=== PATIENT | female | born 1935 | race Caucasian/White ===

== ENCOUNTER 2016-05-09 14:11 | Inpatient (IN) | payer OTHER ==
[2016-05-09] MEDS ORDERED: NS 1,000 ML IV ONE (14:27)
--- NOTE | 2016-05-09 14:30 | EDPHY ---
HPI/HX/ROS/PE/MDM Narrative: CHIEF COMPLAINT: Sore throat, throat swelling HPI: The patient is a 81 y/o female who is visiting from the [facility] complaining of sore throat onset yesterday and right-sided throat swelling onset this morning upon waking. She denies significant past medical history, though later reports previous episode of necrotizing fascitis and recurrent pneumonia. She has barely been able to swallow a small amount of water this morning and reports associated difficulty and pain with talking. Throughout last night she also had intermittent chills. Her PCP called in erythromycin for her and she has taken one pill so far with great difficulty. She denies recent trauma or other illness. REVIEW OF SYSTEMS: Aside from elements discussed in the HPI, a comprehensive 10-point review of systems was reviewed and is negative. PMH: Necrotizing fascitis and recurrent pneumonia. Takes simvastatin, metoprolol SOCIAL HISTORY: son at bedside PHYSICAL EXAM: General:Patient is alert, in no acute distress. ENT:Eyes are normal to inspection. No tongue elevation. No drooling. Despite tongue depressor cannot visualize uvula or tonsils. No stridor. Speaking in full sentences. Mild external swelling below chin on the right side. Neck: Normal inspection. Full range of motion. Respiratory:No respiratory distress. Breath sounds normal bilaterally. Cardiovascular: Tachycardic regular rate and rhythm. Strong peripheral pulses. Normal cap refill. Abdomen:The abdomen is nontender to palpation. There are no peritoneal signs. There are normal bowel sounds. Back: Normal to inspection. No tenderness to palpation. Skin: Normal color. No rash. Warm and dry. Extremities: Normal appearance. Full range of motion. Neuro: Oriented x3. Normal motor function. Normal sensory function. ED Course: IV established. Labs drawn including CBC, CHEM. ISTAT ordered. Plan for CT of neck soft tissue. 1L IV NS administered. 1550: Study: CT of the neck soft tissue Indication: Pain, swelling Results: CT scan of the neck was obtained. The results of the study are 1. Right neck inflammation extending from the tonsil to the carotid bifurcation , with mucosal thickening, suggesting phlegmon with no visible abscess. Imaging follow up is recommended as clinically warranted. 2. 2.6-cm right maxillary sinus mucous retention cyst/polyp. 3. 3.5-cm left thyroid nodule. This is above the threshold for biopsy per [employer] of [employer] in Ultrasound. If this has not been previously assessed , consider starting with a thyroid ultrasound. 4. Degenerative change in the cervical spine. 5. Additional findings as above. The study was read by the radiologist, Dr. Rhodes. I viewed the images myself on the PACS system. ENT paged. 1553: Consulted with Dr. Vargas, ENT. She will review imaging and agrees with my plan for antibiotics and admission. 10mg IV Decadron and 3gm IV Unasyn administered. Discussed plan with the patient. She agrees to admission. 1617: Spoke with Dr. Hart, hospitalist. He accepts admission. MDM: This patient presents with severe throat pain and likely phlegmon is seen on CT. No drainable abscess. Given aggressive nature of infection, will need to admit for IV antibiotics, airway monitoring and ENT evaluation. - Data Points Laboratory Results: Laboratory Results 05/09/16 14:30 05/09/16 14:30 05/09/16 05/09/16 05/09/16 14:32 14:30 14:30 WBC 23.16 10^3/uL H 10^3/uL (3.80-9.50) RBC 4.48 10^6/uL 10^6/uL (4.18-5.33) Hgb 14.0 g/dL g/dL (12.6-16.3) POC Hgb 14.6 gm/dL gm/dL (12.3-15.9) Hct 41.8 % % (38.0-47.0) POC Hct 43 % % (35.5-47.5) MCV 93.3 fL fL (81.5-99.8) MCH 31.3 pg pg (27.9-34.1) MCHC 33.5 g/dL g/dL (32.4-36.7) RDW 13.5 % % (11.5-15.2) Plt Count 280 10^3/uL 10^3/uL (150-400) MPV 10.4 fL fL (8.7-11.7) Neut % (Auto) 75.3 % H % (39.3-74.2) Lymph % (Auto) 19.4 % % (15.0-45.0) Garrett % (Auto) 4.1 % L % (4.5-13.0) Eos % (Auto) 0.0 % L % (0.6-7.6) Baso % (Auto) 0.3 % % (0.3-1.7) Nucleat RBC Rel Count 0.0 % % (0.0-0.2) Absolute Neuts (auto) 17.44 10^3/uL H 10^3/uL (1.70-6.50) Absolute Lymphs (auto) 4.50 10^3/uL H 10^3/uL (1.00-3.00) Absolute Monos (auto) 0.95 10^3/uL H 10^3/uL (0.30-0.80) Absolute Eos (auto) 0.00 10^3/uL L 10^3/uL (0.03-0.40) Absolute Basos (auto) 0.07 10^3/uL 10^3/uL (0.02-0.10) Absolute Nucleated RBC 0.00 10^3/uL 10^3/uL (0-0.01) Immature Gran % 0.9 % % (0.0-1.1) Immature Gran # 0.20 10^3/uL H 10^3/uL (0.00-0.10) POC Sodium 139 mEq/L mEq/L (134-144) Sodium 140 mEq/L mEq/L (134-144) POC Potassium 3.8 mEq/L mEq/L (3.3-5.0) Potassium 4.1 mEq/L mEq/L (3.5-5.2) POC Chloride 102 mEq/L mEq/L (96-108) Chloride 102 mEq/L mEq/L (97-110) Carbon Dioxide 24 mEq/l mEq/l (22-31) Anion Gap 14 mEq/L mEq/L (8-16) POC BUN 8 mg/dL mg/dL (7-23) BUN 10 mg/dL mg/dL (7-23) Creatinine 0.8 mg/dL mg/dL (0.6-1.0) POC Creatinine 0.7 mg/dL mg/dL (0.6-1.2) Estimated GFR > 60 Glucose 122 mg/dL H mg/dL (70-100) POC Glucose 128 mg/dL H mg/dL (70-100) Calcium 9.7 mg/dL mg/dL (8.5-10.4) Medications Given: Discontinued Medications Dexamethasone (Decadron Injection) 10 mg IVP EDNOW ONE Stop: 05/09/16 15:56 Last Admin: 05/09/16 16:24 Dose: 10 mg Sodium Chloride (Ns) 1,000 mls @ 0 mls/hr IV ONCE ONE PRN Reason: Wide Open Stop: 05/09/16 14:28 Last Admin: 05/09/16 14:41 Dose: 1,000 mls Ampicillin Sodium/Sulbactam (Sodium 3 gm/ Sodium Chloride) 100 mls @ 200 mls/ hr IV EDNOW ONE PRN Reason: Protocol Stop: 05/09/16 16:23 Last Admin: 05/09/16 16:39 Dose: 100 mls Point of Care Test Results: 05/09/16 14:32 POC Sodium 139 POC Potassium 3.8 POC Chloride 102 POC BUN 8 POC Creatinine 0.7 POC Glucose 128 H General Time Seen by Provider: 05/09/16 14:14 Initial Vital Signs: Initial Vital Signs Temperature (C) 38.0 C 05/09/16 14:27 Heart Rate 124 H 05/09/16 14:27 Respiratory Rate 16 05/09/16 14:27 Blood Pressure 114/78 05/09/16 14:27 O2 Sat (%) 91 L 05/09/16 14:27 O2 Delivery Mode Room Air Allergies/Adverse Reactions: oxycodone Allergy (Verified 05/09/16 14:27) Home Medications: Medication Instructions Recorded Azithromycin [Zithromax] 250 mg PO DAILY 05/09/16 C/E/Zn/Cu/OM3/DHA/EPA/LUT/ZEAX 1 each PO DAILY 05/09/16 [Preservision Areds 2 Softgel] Herbals/Supplements -Info Only 1 ea PO AD 05/09/16 Metoprolol Succinate Xr [Toprol Xl 37.5 mg PO HS 05/09/16 25 mg (*)] Simvastatin 10 mg PO HS 05/09/16 Departure - Departure Disposition: [facility] Clinical Impression: Phlegmon Pharyngitis Qualifiers: Pharyngitis/tonsillitis etiology: unspecified etiology Qualified Code(s): J02.9 - Acute pharyngitis, unspecified Condition: Good Report Scribed for: Derek Turk Report Scribed by: Carey Alexander Date of Report: 05/09/16 Time of Report: 14:17 Physician Review and Approval Statement: Portions of this note were transcribed by an ED scribe. I personally performed the history, physical exam, and medical decision making; and confirm the accuracy of the information in the transcribed note.
[2016-05-09] MEDS ORDERED: IOPAMIDOL (ISOVUE-300) 100 ML BTL IV ONE (14:43)
[2016-05-09 14:48] LABS: % IMMATURE GRANULYOCYTES 0.9 % (0.0-1.1); ADD DIFF? NO; ADD MORPH? NO; ADD SCAN? NO; ATYPICAL LYMPHOCYTE FLAG 10 (0-99); FRAGMENT RBC FLAG 0 (0-99); HEMATOCRIT 41.8 % (38.0-47.0); LEFT SHIFT FLG 20 (0-99); LIPEMIA HEMOLYSIS FLAG 80 (0-99); MEAN CELL HEMOGLOBIN 31.3 pg (27.9-34.1); MEAN CELL HEMOGLOBIN CONCENTR. 33.5 g/dL (32.4-36.7); MEAN CELL VOLUME 93.3 fL (81.5-99.8); MEAN PLATELET VOLUME 10.4 fL (8.7-11.7); PLATELET CLUMPS FLAG 20 (0-99); PLATELET COUNT 280 10^3/uL (150-400); RED BLOOD CELL COUNT 4.48 10^6/uL (4.18-5.33); RED CELL DISTRIBUTION WIDTH 13.5 % (11.5-15.2)
[2016-05-09 15:15] LABS: ANION GAP 14 mEq/L (8-16); CALCIUM 9.7 mg/dL (8.5-10.4); CARBON DIOXIDE 24 mEq/l (22-31); CHLORIDE 102 mEq/L (97-110); CREATININE 0.8 mg/dL (0.6-1.0); GLOMERULAR FILTRATION RATE > 60; GLUCOSE 122 mg/dL (70-100); POTASSIUM 4.1 mEq/L (3.5-5.2); SODIUM 140 mEq/L (134-144)
[2016-05-09] MEDS ORDERED: AMPICILLIN/SULBACTAM 3 GM in NS 100 ML IV ONE (15:54)
[2016-05-09] MEDS ORDERED: DEXAMETHASONE 10 MG/ML VIAL IVP ONE (15:55)
[2016-05-09] MEDS ORDERED: ONDANSETRON 4 MG/2 ML VIAL IVP PRN (17:21)
[2016-05-09] MEDS ORDERED: HYDROCODONE/APAP 5/325 TAB PO PRN (17:21)
[2016-05-09] MEDS ORDERED: ONDANSETRON DISINTEGRATING 4 MG TAB PO PRN (17:21)
[2016-05-09] MEDS ORDERED: KETOROLAC 30 MG/1 ML SDV IVP ONE (17:23)
[2016-05-09] MEDS ORDERED: NS 1,000 ML IV SCH (17:30)
--- NOTE | 2016-05-09 18:07 | GHP ---
[f rep st] HISTORY AND PHYSICAL DATE OF ADMISSION: 05/09/2016 CHIEF COMPLAINT: Throat pain. HISTORY OF PRESENT ILLNESS: A 81-year-old female with a history of hypertension and hyperlipidemia. She is visiting her son from the [facility]. She states she has had 2 days of sore throat. This has worsened and now is localized to the right side. No other respiratory tract infection symptoms. She thinks she has had some fever. She is having difficulty swallowing. No difficulty breathing. REVIEW OF SYSTEMS: A 10-point review of systems obtained and was otherwise negative. PAST MEDICAL HISTORY: 1. Hypertension. 2. Hyperlipidemia. MEDICATIONS: Metoprolol and simvastatin. SOCIAL HISTORY: No smoking or alcohol. Lives in [place]. FAMILY HISTORY: Reviewed and noncontributory. PHYSICAL EXAMINATION: VITAL SIGNS: Afebrile. Blood pressure is 139/73, heart rate 94, oxygen satu ration 96% on 2 L. GENERAL: The patient is well developed, in no apparent distress. HEENT: Anict agustín sclerae. Extraocular movements intact. It is hard to visualize her throat as she is not able to open her mouth. There seems to be some generalized erythema and edema. NECK: Some tender lymph adenopathy, especially on the right. LUNGS: Good effort. Clear to auscultation bilaterally. CARD IOVASCULAR: Regular rate and rhythm. No murmurs or gallops. ABDOMEN: Positive bowel sounds. Sof t, nontender, nondistended. No hepatosplenomegaly. EXTREMITIES: No clubbing, cyanosis, or edema. SKIN: Without rash. Intact. NEUROLOGIC: Alert and oriented x3. Moving all 4 extremities equally . PSYCH: Normal mood and affect. LABORATORY DATA: White count is elevated at 23,000, hemoglobin 14, platelets are 280. Sodium 140, potassium 4.1, creatinine 0.8. CT scan of the neck shows right neck inflammation extending from the throat until the carotid bifurc ation with a suggestion of phlegmon but no visible abscess. Also, a 3.5 cm left thyroid nodule. PLAN: 1. Neck phlegmon/inflammation. This is infectious in etiology. With elevated white blood cell cou nt, is possibly bacterial. Will continue with IV Unasyn. I will give her a dose of Toradol right n ow to see if this might help with some of the inflammation. ENT has been called. I will also get a strep culture. 2. Thyroid nodule. This will need to be followed up outpatient when she gets back to [place]. 3. Hypertension. This is stable. 4. Hyperlipidemia. /[id number]/MODL
[2016-05-09] MEDS: METOPROLOL SUCCINATE XR 25 MG TAB PO SCH (20:13)
[2016-05-09] MEDS: PRAVASTATIN SODIUM 20 MG TAB PO SCH (20:14)
[2016-05-09] MEDS: AMPICILLIN/SULBACTAM 3 GM in NS 100 ML IV SCH (20:54)
[2016-05-10] MEDS: AMPICILLIN/SULBACTAM 3 GM in NS 100 ML IV SCH ×4 (05:23→21:07)
[2016-05-10 05:28] LABS: % IMMATURE GRANULYOCYTES 0.5 % (0.0-1.1); ABSOLUTE IMMATURE GRANULOCYTES 0.12 10^3/uL (0.00-0.10); ADD DIFF? NO; ADD MORPH? NO; ADD SCAN? NO; ATYPICAL LYMPHOCYTE FLAG 10 (0-99); FRAGMENT RBC FLAG 0 (0-99); HEMATOCRIT 36.9 % (38.0-47.0); HEMOGLOBIN 12.2 g/dL (12.6-16.3); LEFT SHIFT FLG 20 (0-99); LIPEMIA HEMOLYSIS FLAG 80 (0-99); MEAN CELL HEMOGLOBIN CONCENTR. 33.1 g/dL (32.4-36.7); MEAN CELL VOLUME 93.7 fL (81.5-99.8); MEAN PLATELET VOLUME 10.3 fL (8.7-11.7); PLATELET CLUMPS FLAG 0 (0-99); PLATELET COUNT 237 10^3/uL (150-400); RED BLOOD CELL COUNT 3.94 10^6/uL (4.18-5.33); RED CELL DISTRIBUTION WIDTH 13.8 % (11.5-15.2)
[2016-05-10 05:47] LABS: ANION GAP 11 mEq/L (8-16); CALCIUM 9.1 mg/dL (8.5-10.4); CARBON DIOXIDE 22 mEq/l (22-31); CHLORIDE 107 mEq/L (97-110); CREATININE 0.6 mg/dL (0.6-1.0); GLOMERULAR FILTRATION RATE > 60; GLUCOSE 164 mg/dL (70-100); POTASSIUM 4.4 mEq/L (3.5-5.2); SODIUM 140 mEq/L (134-144)
--- NOTE | 2016-05-10 08:24 | HOSPPROG ---
Hospitalist Progress Note Assessment/Plan: #Right neck phlegmon: Strep A positive. Cont IV unasyn here, change to Amoxicillin for total 10 days at DC #Odynophagia: due to above. Improved. Cepacol lozenges #Leukocytosis: Strep A, no abscess to drain. Unasyn. Blood culture NGTD #HLD: statin #Benign HTN: #DVT ppx: ambulatory #Disp: cont IV abx today, if clinically improved, will DC tomorrow Subjective: less pain with swallowing, can eat better today Objective: Vital Signs Temp Pulse Resp BP Pulse Ox 36.7 C 83 16 130/65 H 94 05/10/16 05:23 05/10/16 05:23 05/10/16 05:23 05/10/16 05:23 05/10/16 05:23 Laboratory Results 05/10/16 05:25 05/10/16 05:25 05/09/16 05/10/16 05/11/16 05:59 05:59 05:59 Intake Total 1000 Balance 1000 - Physical Exam Constitutional: no apparent distress, appears nourished Eyes: PERRL, anicteric sclera Ears, Nose, Mouth, Throat: moist mucous membranes, other (swollen tonsils R>L, no exudate. Right cervical LAD, TTP) Cardiovascular: regular rate and rhythym, no murmur, rub, or gallop Respiratory: no respiratory distress Gastrointestinal: normoactive bowel sounds Genitourinary: no bladder fullness Skin: warm Musculoskeletal: full muscle strength Neurologic: AAOx3 Psychiatric: interacting appropriately ICD10 Worksheet Patient Problems: Problems Problem Status Onset Pharyngitis Acute Phlegmon Acute
[2016-05-10] MEDS ORDERED: CEPACOL LOZENGE PO PRN (10:50)
[2016-05-10] MEDS: ACETAMINOPHEN 325 MG TAB PO PRN (15:50)
--- NOTE | 2016-05-10 20:42 | GCON ---
[f rep st] CONSULTATION DATE OF CONSULTATION: 05/10/2016 REASON FOR CONSULTATION: Pharyngitis. HISTORY OF PRESENT ILLNESS: This is a 81-year-old female who presented yesterday to the emergency r oom with significant throat pain primarily on the right side and extreme difficulty with swallowing. She is not having any difficulty breathing. The patient reports a history of tonsillectomy, and n o prior oropharyngeal abscess or peritonsillar abscess. She was admitted and started on IV antibiot ics and steroids, and over the past 18 hours, she feels significantly better. She is still having s ome throat pain with swallowing, but otherwise is feeling much better. She denies any airway sympto ms. The patient is visiting from [place] and was supposed to fly back today, but is planning on hopefully flying back on Thursday. PAST MEDICAL HISTORY: Significant for prior tonsillectomy. PHYSICAL EXAM: HEENT AND NECK: Patient is awake and alert. No muffled voice. No trouble tolerati ng secretions. No stridor. No swelling or erythema of the face. There is some mild swelling seen on the right side of her neck. Her mouth and oropharynx shows normal tongue. No oral cavity swelli ng. The right anterior tonsillar pillar is slightly red, but no edema. Uvula is in midline with no edema. The left posterior pharyngeal wall appears normal. On the neck, patient with persistent te nder lymphadenopathy on the right side with some firm lymph nodes. The left side feels relatively n ormal. LABS: The patient with a DNA strep test positive. ASSESSMENT AND PLAN: A 81-year-old female with strep positive pharyngitis, possible early paraphary ngeal abscess. Patient responding well to IV antibiotics of Unasyn. Recommend switching to Augment in and discharging on Augmentin. Patient has been counseled, but hopefully and most likely the IV a ntibiotics and oral antibiotics will be sufficient to treat her infection; but there is still a smal l chance that symptoms will worsen and abscess could still progress, and she has been advised to victoria l if her symptoms at any point are worsening rather than improving. As long as she continues to imp rove, I feel comfortable, as long as she has no trouble swallowing and breathing, with her travel pl [facility] on Thursday. /[id number]/MODL
[2016-05-10] MEDS ORDERED: TEMAZEPAM 15 MG CAP PO SCH (21:00)
[2016-05-10] MEDS: METOPROLOL SUCCINATE XR 25 MG TAB PO SCH (21:03)
[2016-05-10] MEDS: PRAVASTATIN SODIUM 20 MG TAB PO SCH (21:04)
[2016-05-11] MEDS: ACETAMINOPHEN 325 MG TAB PO PRN ×2 (02:36→14:00)
[2016-05-11] MEDS: AMPICILLIN/SULBACTAM 3 GM in NS 100 ML IV SCH ×2 (05:35→12:17)
[2016-05-11 05:47] LABS: HEMATOCRIT 33.3 % (38.0-47.0); HEMOGLOBIN 10.8 g/dL (12.6-16.3); MEAN CELL HEMOGLOBIN 30.9 pg (27.9-34.1); MEAN CELL HEMOGLOBIN CONCENTR. 32.4 g/dL (32.4-36.7); MEAN CELL VOLUME 95.4 fL (81.5-99.8); RED BLOOD CELL COUNT 3.49 10^6/uL (4.18-5.33); RED CELL DISTRIBUTION WIDTH 13.9 % (11.5-15.2)
[2016-05-11 08:22] VITALS: BP 140/74; PULSE 78; RESP 18; TEMP 97.8; O2SAT 97
[2016-05-11] MEDS ORDERED: AMOXICILLIN/CLAVULANATE POT 875/125 MG TAB PO ONE ×2 (10:16→14:00)
--- NOTE | 2016-05-11 11:42 | GDS ---
[f rep st] DISCHARGE SUMMARY DISCHARGE DIAGNOSES: 1. Strep pharyngitis. 2. Right neck phlegmon, possible early parapharyngeal abscess. 3. Odynophagia. 4. Leukocytosis. 5. Hyperlipidemia. 6. Benign hypertension. 7. Thyroid nodule. CONSULTATIONS: ENT. HISTORY OF PRESENT ILLNESS: Patient is a pleasant 81-year-old female with history of hypertension a nd hyperlipidemia, visiting her son from [place]. She reports having 2 days of sore throat, blanka g with pain with swallowing. She denies cough or fever. She has had some sweats at night. HOSPITAL COURSE BY PROBLEM: 1. Strep A pharyngitis/possible early parapharyngeal abscess: CT demonstrated phlegmon, no overt a bscess to be drained. Patient was started on IV Unasyn and strep culture resulted as positive on 2n d day of admission. The patient was evaluated by ENT. No surgical intervention warranted at this t pierce. She will be discharged on Augmentin for a total of 10 days of antibiotics. She was advised if symptoms worsen that she should return to the hospital. 2. Thyroid nodule: This was an incidental finding on imaging. Her TSH was low at 0.225. Recommen d that she have a thyroid ultrasound as an outpatient. 3. Benign hypertension: Continue home medications. 4. Hyperlipidemia: Continue home medications. 5. Leukocytosis: This is secondary to acute infection. This is trending down. Blood cultures hav e remained negative to date. DISPOSITION: Patient is stable for discharge. DISCHARGE MEDICATIONS: Augmentin and Tylenol. FOLLOWUP: Thyroid ultrasound. /[id number]/MODL
== END 2016-05-11 15:02 | disposition home or self-care (01) | DRG 153 ==
LOC: F1N 16:49 → OBSVTOIN 05-10 13:34
PROVIDERS: ADMIT Internal Medicine; ATTEND Internal Medicine
DX: J02.0 Streptococcal pharyngitis (principal); J39.0 Retropharyngeal and parapharyngeal abscess; I10 Essential (primary) hypertension; E78.5 Hyperlipidemia, unspecified; E04.1 Nontoxic single thyroid nodule
CPT/HCPCS: 82947-QW; 96365; G0378; J0295; J1885; Q9967